=== PATIENT | female | born 1995 | race Caucasian/White ===

== ENCOUNTER 2019-04-11 11:25 | Emergency (ER) | payer BC ==
[2019-04-11 12:33] LABS: Amorphous Sediment,Urine Rare /hpf; Appearance,Urine Cloudy (Clear); Bacteria,Urine Rare /hpf; Bilirubin,Urine Negative (Negative); Blood,Urine Negative (Negative); Color,Urine Light Yellow; Glucose,Urine (UA) Negative (Negative); Ketones,Urine Negative (Negative); Leukocyte Esterase,Urine Large (Negative); Mucus,Urine Rare /hpf; Nitrite,Urine Negative (Negative); PH, Urine 6.5 (5.0-8.0); Protein,Urine Negative (Negative); RBC,Urine 2 /hpf (0-5); Specific Gravity,Urine 1.008 (1.001-1.035); Squamous Epithelial Cell,Urine 15 /hpf (0-4); Urobilinogen,Urine <2.0 mg/dL (<2.0); WBC,Urine 5 /hpf (0-5)
--- NOTE | 2019-04-11 12:55 | US ---
EXAMINATION TYPE: Transabdominal DATE OF EXAM: 04/11/2019 12:46 PM COMPARISON: NONE CLINICAL HISTORY: pain. EXAM PERFORMED: Transabdominal (TA) EXAM MEASUREMENTS: GESTATIONAL AGE / DATING Physician Established: (12 weeks/5 days) EDC: 10/19/2019 Dates by LMP: (12 weeks/5 days) EDC: 10/19/2019 Dates by First Scan: No previous this is first scan Dates by Current Scan for: (13 weeks/3 days) EDC: 10/14/2019 MATERNAL ANATOMY Uterus: 12.0 x 5.2 x 9.2 cm Right Ovary: 3.3 x 3.5 x 2.1 cm Left Ovary: 3.2 x 2.7 x 1.3 cm Post CDS / Adnexa: wnl Presence of free fluid: No Presence of corpus luteal cyst: Yes, right ovary measuring 1.7 cm Presence of subchorionic bleed: no GESTATION / SURVEY CRL: 7.1 cm (13 weeks/3 days Heart Rate: 146 bpm Rhythm: Normal IUP: Live IUP Date of LMP: Unsure Beta HcG (if available): Not available at this time IMPRESSION: Single live intrauterine with a sonographic age of 13 weeks and 3 days and scott mated date of delivery of 10/14/2019, overall concordant with menstrual age.
--- NOTE | 2019-04-11 13:11 | ED ---
Abdominal Pain HPI - General Chief Complaint: Abdominal Pain Stated Complaint: Cramping-12wks PG Time Seen by Provider: 04/11/19 12:10 Source: patient, RN notes reviewed Mode of arrival: ambulatory Limitations: no limitations - History of Present Illness Initial Comments: 24-year-old female presented for abdominal pain . Patient's had some ongoing pain last 4 days. 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 SHE IS A1. PATIENT STATES SHE'S PARTIALLY 12 WEEKS AND 5 DAYS. PATIENT STATES SHE HAS SOME LIGHT BROWN SPOTTING. SHE DENIES ANY FLANK PAIN. DENIES FEVERS, CHILLS, INCREASED NAUSEA VOMITING DIARRHEA CONSTIPATION. - Related Data Home Medications Medication Instructions Recorded Confirmed Acetaminophen Tab [Tylenol Tab] 1,000 mg PO Q6HR PRN 04/11/19 04/11/19 Nitrofurantoin Monohyd/M-Cryst 100 mg PO Q12HR 04/11/19 04/11/19 [Macrobid] Allergies Allergy/AdvReac Type Severity Reaction Status Date / Time Sulfa (Sulfonamide Allergy Rash/Hives Verified 04/11/19 12:27 Antibiotics) codeine AdvReac Rapid Verified 04/11/19 12:27 Heart Rate Review of Systems ROS Statement: Those systems with pertinent positive or pertinent negative responses have been documented in the HPI. ROS Other: All systems not noted in ROS Statement are negative. 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 Absent: tenderness, meningismus, lymphadenopathy Respiratory exam: Present: normal lung sounds bilaterally. Absent: respiratory distress, wheezes, rales, rhonchi, stridor Cardiovascular Exam: Present: regular rate, normal rhythm, normal heart sounds. Absent: systolic murmur, diastolic murmur, rubs, gallop, clicks GI/Abdominal exam: Present: soft, tenderness (Minimal suprapubic), normal bowel sounds. Absent: distended, guarding, rebound, rigid Back exam: Absent: CVA tenderness (R), CVA tenderness (L) Course Vital Signs 04/11/19 11:41 Temperature 98.5 F Pulse Rate 64 Respiratory 20 Rate Blood Pressure 113/71 O2 Sat by Pulse 99 Oximetry Medical Decision Making - Medical Decision Making Ultrasound was unremarkable shows single live IUP 13 weeks and 3 days. Patient does have some patient denied bacteriuria in she is currently on antibiotics or continue it. Patient advised to increase fluid intake. - Lab Data Lab Results 04/11/19 Range/Units 12:25 Urine Color Light Yellow Urine Appearance Cloudy H (Clear) Urine pH 6.5 (5.0-8.0) Ur Specific [place] 1.008 (1.001-1.035) Urine Protein Negative (Negative) Urine Glucose (UA) Negative (Negative) Urine Ketones Negative (Negative) Urine Blood Negative (Negative) Urine Nitrite Negative (Negative) Urine Bilirubin Negative (Negative) Urine Urobilinogen <2.0 (<2.0) mg/dL Ur Leukocyte Esterase Large H (Negative) Urine RBC 2 (0-5) /hpf Urine WBC 5 (0-5) /hpf Ur Squamous Epith Cells 15 H (0-4) /hpf Amorphous Sediment Rare H (None) /hpf Urine Bacteria Rare H (None) /hpf Urine Mucus Rare H (None) /hpf Disposition Clinical Impression: Abdominal pain during Disposition: HOME SELF-CARE Condition: Stable Instructions (If sedation given, give patient instructions): Abdominal Pain in (ED) Additional Instructions: Please return to the Emergency Department if symptoms worsen or any other concerns. Is patient prescribed a controlled substance at d/c from ED?: No Referrals: None,Stated [Primary Care Provider] - 1-2 days Time of Disposition: 13:10
[2019-04-11 13:26] VITALS: BP 109/67; PULSE 70; RESP 18; TEMP 98.7
== END 2019-04-11 13:25 | disposition home or self-care (01) ==
LOC: EC 11:25
DX: O99.89 Other specified diseases and conditions complicating pregnancy, childbirth and the puerperium (principal); R10.9 Unspecified abdominal pain; O26.851 Spotting complicating pregnancy, first trimester; Z87.891 Personal history of nicotine dependence; Z88.2 Allergy status to sulfonamides; Z88.5 Allergy status to narcotic agent; Z87.728 Personal history of other specified (corrected) congenital malformations of nervous system and sense organs; Z90.49 Acquired absence of other specified parts of digestive tract; Z3A.13 13 weeks gestation of pregnancy
CPT/HCPCS: 76801; 81001; 99284

== ENCOUNTER 2019-08-21 06:10 | Outpatient (CLI) | payer BC, OTHER ==
[2019-08-21 06:48] VITALS: BP 115/70; PULSE 81; RESP 16; TEMP 98.2
--- NOTE | 2019-09-07 07:53 | P.MSEPDOC ---
Presenting Problems - Arrival Data Date of Arrival on Unit: 08/21/19 Time of Arrival on Unit: 06:10 Mode of Transport: Ambulatory - Complaint OB-Reason for Admission/Chief Complaint: Other Comment: Chest pain/discomfort, SOB that is relieved with stretching out abdomen Medical History - Information : 1 Para: 0 Term: 0 : 0 Abortions: Spontaneous or Elective: 0 Number of Living Children: 0 - Gestational Age Gestational Age by MEHRDAD (wks/days): 31 Weeks and 4 Days Review of Systems - Review of Systems Constitutional: No problems Breast: No problems ENT: No problems Cardiovascular: Chest pain Respiratory: No problems Gastrointestinal: No problems Genitourinary: No problems Musculoskeletal: No problems Neurological: No problems Skin: No problems Comment: SOB Vital Signs - Temperature Temperature: 98.2 F Temperature Source: Oral - Pulse Right Pulse Rate: 81 Pulse Assessment Method: Automatic Cuff - Respirations Respiratory Rate: 16 Oxygen Delivery Method: Room Air O2 Sat by Pulse Oximetry: 98 - Blood Pressure Right Arm Blood Pressure: 115/70 Blood Pressure Mean: 85 Blood Pressure Source: Automatic Cuff Medical Screen Scoring (Pre) - Cervical Exam Dilation: 0 cm = 0 Effacement: Exam Deferred Membranes: Intact - Uterine Contractions Frequency: N/A - Maternal Vital Signs Maternal Temperature: N/A Maternal Blood Pressure: N/A Signs of Preeclampsia: N/A Maternal Respirations: N/A - Maternal Trauma Maternal Trauma: N/A - Assessment - Baby A Baseline FHR: 125 Heart Rate - NICHD Category: Category I (Normal) = 0 NST: Reactive Position: N/A Station: N/A - Total Score - Baby A Total Score - Baby A: 0 - Total Score - Baby B Total Score - Baby B: 0 - Total Score - Baby C Total Score - Baby C: 0 - Level of Risk - Baby A Level of Risk - Baby A: Low (0-5) - Level of Risk - Baby B Level of Risk - Baby B: Low (0-5) - Level of Risk - Baby C Level of Risk - Baby C: Low (0-5) Physician Notification (Pre) - Physician Notified Physician Notified Date: 08/21/19 Physician Notified Time: 06:30 New Order Received: Yes - Notification Comment Comment: Watch pt for 1hr and then send pt to ER for further evaluation Medical Screen Scoring (Post) - Cervical Exam Dilation: Exam Deferred Effacement: Exam Deferred Membranes: Intact - Uterine Contractions Frequency: N/A Duration: N/A Intensity: N/A - Maternal Vital Signs Maternal Temperature: N/A Maternal Blood Pressure: N/A Signs of Preeclampsia: N/A Maternal Respirations: N/A - Pain Assessment Pain Scale Used: Numeric (1 - 10) Pain Intensity: 0 - Maternal Trauma Maternal Trauma: N/A - Assessment - Baby A Heart Rate: 125 Heart Rate - NICHD Category: Category I (Normal) = 0 NST: Reactive Position: N/A Station: N/A - Total Score Total Score - Baby A: 0 Total Score - Baby B: 0 Total Score - Baby C: 0 - Post Treatment Level of Risk Post Treatment Level of Risk - Baby A: Low (0-5) Post Treatment Level of Risk - Baby B: Low (0-5) Post Treatment Level of Risk - Baby C: Low (0-5) Physician Notification (Post) - Physician Notified Physician Notified Date: 08/21/19 Physician Notified Time: 06:40 Physician/Practitioner Notified:: Arleen Spoke With: Arleen Disposition - Disposition OB Disposition: Transfer to other dept./facility, Discharge to home Transferred to:: ER Discharge Date: 08/21/19 Discharge Time: 07:20 I agree with the RN Medical Screening Exam: Yes Risk & Benefit of care provided described in d/c instruction: Yes Diagnosis: OTHER CHEST PAIN
== END 2019-08-21 07:20 | disposition home or self-care (01) ==
LOC: FBPOP 06:10
PROVIDERS: ATTEND Obstetrics & Gynecology
DX: O99.89 Other specified diseases and conditions complicating pregnancy, childbirth and the puerperium (principal); R07.89 Other chest pain; Z3A.31 31 weeks gestation of pregnancy
CPT/HCPCS: 59025; 99213

== ENCOUNTER 2019-08-21 07:22 | Emergency (ER) | payer BC, OTHER ==
[2019-08-21 07:29] VITALS: RESP 18
--- NOTE | 2019-08-21 07:45 | ED ---
Chest Pain HPI - General Chief Complaint: Chest Pain Stated Complaint: SOB/chest pain Time Seen by Provider: 08/21/19 07:30 Source: patient, RN notes reviewed, old records reviewed Mode of arrival: ambulatory Limitations: no limitations - History of Present Illness Initial Comments: This Patient is a [id number] female proximally 31 weeks who presents emergency department today with a few weeks of worsening chest discomfort and difficulty breathing with laying down as the baby is pressing on her abdomen and diaphragm. Patient states that this morning she woke up with some pelvic pain and decided to come to the emergency department for evaluation. She was evaluated on the mother-baby unit for an hour later how tones were obtained and were within normal limits. They determined the patient's pelvic pain is related to the round ligament stretching and babies position. Patient reports that she sent in here for further evaluation for the difficulty breathing. She reports that when she stretches her back and abdomen up that she has relief of her symptoms and feels that she is able to breathe better. She reports the baby seems to be riding high in the abdomen and pressing on her diaphragm. She denies any significant lower extremity swelling or hemoptysis. She reports pain is mainly substernal and under diaphragm. - Related Data Home Medications Medication Instructions Recorded Confirmed Pnv,Calcium 72/Iron/Folic Acid 1 tab PO DAILY 08/21/19 08/21/19 [ Plus Tablet] Allergies Allergy/AdvReac Type Severity Reaction Status Date / Time Sulfa (Sulfonamide Allergy Rash/Hives Verified 08/21/19 07:29 Antibiotics) codeine AdvReac Rapid Verified 08/21/19 07:29 Heart Rate Review of Systems ROS Statement: Those systems with pertinent positive or pertinent negative responses have been documented in the HPI. ROS Other: All systems not noted in ROS Statement are negative. EKG Findings - EKG Comments: EKG Findings:: EKG performed shows normal sinus rhythm abnormal EKG. Ventricular rate of 85 bpm. [place] interval is 124 ms. QS duration is 80 ms. QT QTc is 360/452 ms. No evidence of ST elevation. 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 Limitations: no limitations General appearance: alert, in no apparent distress Head exam: Present: atraumatic, normocephalic, normal inspection Eye exam: Present: normal appearance ENT exam: Present: normal exam, mucous membranes moist Neck exam: Present: normal inspection. Absent: tenderness, meningismus, lymphadenopathy Respiratory exam: Present: normal lung sounds bilaterally, other (reproducible chest pain with palpation over sternum). Absent: respiratory distress, wheezes, rales, rhonchi, stridor Cardiovascular Exam: Present: regular rate, normal rhythm, normal heart sounds. Absent: systolic murmur, diastolic murmur, rubs, gallop, clicks GI/Abdominal exam: Present: soft, distended (31 weeks ), normal bowel sounds. Absent: tenderness, guarding, rebound, rigid Extremities exam: Present: normal inspection, other (no calf tenderness or swelling) Back exam: Present: normal inspection Neurological exam: Present: alert, oriented X3, CN II-XII intact Course Vital Signs 08/21/19 08/21/19 07:23 07:39 Temperature 98.1 F Pulse Rate 92 Respiratory 18 18 Rate Blood Pressure 102/69 O2 Sat by Pulse 98 99 Oximetry Chest Pain MDM - MDM This is a 24-year-old female who presents emergency room today for evaluation for concerns for difficulty breathing and diaphragm and substernal chest discomfort with laying in the EC measuring 31 weeks on her diaphragm. She's been having symptoms for the past few weeks. She was seen in the mother- baby unit for acute pelvic pain was monitored for an hour before ER arrival. Heart tones are stable. Patient's pain is reproducible a pressure on the sternum and upper abdomen. Her vital signs are stable pulse ox is 99 200% on room air. She denies hemoptysis or lower extremity swelling. I discussed the risk factors of being for pulmonary embolism. She states that she's been having this pain for a month and is just become progressively worse as baby is growing. A low clinical suspicion for PE again if the pain is reproducible and vital signs are stable. EKG was performed and showed normal sinus rhythm at 95 bpm. Patient was offered further evaluation including chest x-ray and for testing for any risk for PE. She states that she would prefer to avoid radiation and further testing at this time. Patient case was discussed with Dr. Knight. I discussed with the Patient to follow-up with her OB. Disposition Clinical Impression: Shortness of breath due to in third trimester Disposition: HOME SELF-CARE Condition: Good Instructions (If sedation given, give patient instructions): Costochondritis (ED), (ED) Additional Instructions: Patient is to rest, follow-up with [facility]. Patient is to return if there is any worsening cough or any worsening signs or symptoms, or pain seems to be not reproducible with palpation over the sternum and abdomen. Is patient prescribed a controlled substance at d/c from ED?: No Referrals: None,Stated [Primary Care Provider] - 1-2 days Time of Disposition: 07:53
[2019-08-21 08:08] VITALS: BP 99/62; PULSE 76; TEMP 98.5
== END 2019-08-21 08:07 | disposition home or self-care (01) ==
LOC: EC 07:22
DX: O26.893 Other specified pregnancy related conditions, third trimester (principal); R06.02 Shortness of breath; Z3A.31 31 weeks gestation of pregnancy; Z88.2 Allergy status to sulfonamides; Z88.5 Allergy status to narcotic agent
CPT/HCPCS: 59025; 93005; 99213; 99285

== ENCOUNTER 2019-10-05 08:05 | Outpatient (CLI) | payer BC, OTHER ==
[2019-10-05 09:33] VITALS: BP 115/74; PULSE 81; RESP 16; TEMP 97.3
--- NOTE | 2019-10-05 09:38 | P.MSEPDOC ---
Presenting Problems - Arrival Data Date of Arrival on Unit: 10/05/19 Time of Arrival on Unit: 08:05 Mode of Transport: Ambulatory - Complaint OB-Reason for Admission/Chief Complaint: Rule Out SROM Comment: 0530 clear fluid Medical History - Information : 1 Para: 0 Term: 0 : 0 Abortions: Spontaneous or Elective: 0 Number of Living Children: 0 - Gestational Age Gestational Age by MEHRDAD (wks/days): 38 Weeks and 0 Days Review of Systems - Review of Systems Constitutional: No problems Breast: No problems ENT: No problems Cardiovascular: No problems Respiratory: No problems Gastrointestinal: No problems Genitourinary: No problems Musculoskeletal: No problems Neurological: No problems Skin: No problems Vital Signs - Temperature Temperature: 97.3 F Temperature Source: Temporal Artery Scan - Pulse Right Brachial Pulse Rate: 81 Pulse Assessment Method: Automatic Cuff - Respirations Respiratory Rate: 16 Oxygen Delivery Method: Room Air - Blood Pressure Right Arm Sitting Blood Pressure: 115/74 Blood Pressure Mean: 87 Blood Pressure Source: Automatic Cuff Medical Screen Scoring (Pre) - Cervical Exam Dilation: 1-3 cm = 1 Membranes: Intact - Uterine Contractions Frequency: > 5 minutes apart = 1 Duration: N/A Intensity: N/A - Maternal Vital Signs Maternal Temperature: N/A Maternal Blood Pressure: N/A Signs of Preeclampsia: N/A Maternal Respirations: N/A - Maternal Trauma Maternal Trauma: N/A - Assessment - Baby A Baseline FHR: 115 Heart Rate - NICHD Category: Category I (Normal) = 0 NST: Reactive Position: N/A Station: N/A - Total Score - Baby A Total Score - Baby A: 2 - Total Score - Baby B Total Score - Baby B: 2 - Total Score - Baby C Total Score - Baby C: 2 - Level of Risk - Baby A Level of Risk - Baby A: Low (0-5) - Level of Risk - Baby B Level of Risk - Baby B: Low (0-5) - Level of Risk - Baby C Level of Risk - Baby C: Low (0-5) Physician Notification (Pre) - Physician Notified Physician Notified Date: 10/05/19 Physician Notified Time: 09:11 New Order Received: Yes (discharge with instruction) - Notification Comment Comment: possible rom at 0530, amnisure negative, not van, appt scheduled Wednesday Disposition - Disposition OB Disposition: Triage, Discharge to home Discharge Date: 10/05/19 Discharge Time: 09:12 I agree with the RN Medical Screening Exam: Yes Risk & Benefit of care provided described in d/c instruction: Yes Diagnosis: RELATED CONDITIONS, UNSPECIFIED, THIRD TRIMESTER (?SROM)
== END 2019-10-05 09:12 | disposition home or self-care (01) ==
LOC: FBPOP 08:05
PROVIDERS: ATTEND Obstetrics & Gynecology
DX: O26.93 Pregnancy related conditions, unspecified, third trimester (principal); Z3A.00 Weeks of gestation of pregnancy not specified
CPT/HCPCS: 59025; 84112; 99213

== ENCOUNTER 2019-10-09 08:31 | Outpatient (CLI) | payer BC, OTHER ==
[2019-10-09 10:09] VITALS: BP 100/61; PULSE 69; RESP 16; TEMP 96.7
--- NOTE | 2019-10-09 10:11 | US ---
EXAMINATION TYPE: US OB limited DATE OF EXAM: 10/09/2019 COMPARISON: 04/11/2019 CLINICAL HISTORY: 24-year-old female SARI only EXAM PERFORMED: Transabdominal (TA) FINDINGS: GESTATIONAL AGE / DATING Physician Established: (38 weeks/4 days) EDC: 10/19/2019 No growth performed on today?s study per ordering physician SURVEY SARI: 9.9 cm, low Normal Ultrasound evidence of premature rupture of membranes? No HEART RATE: 129 bpm RHYTHM: Normal IMPRESSION: SARI low normal at 9.9.
--- NOTE | 2019-10-09 18:28 | P.MSEPDOC ---
Presenting Problems - Arrival Data Date of Arrival on Unit: 10/09/19 Time of Arrival on Unit: 08:31 Mode of Transport: Ambulatory - Complaint OB-Reason for Admission/Chief Complaint: Rule Out SROM Comment: leaking since 10/04, two large gushes this am Medical History - Information : 1 Para: 0 Term: 0 : 0 Abortions: Spontaneous or Elective: 0 Number of Living Children: 0 - Gestational Age Gestational Age by MEHRDAD (wks/days): 38 Weeks and 4 Days Review of Systems - Review of Systems Constitutional: No problems Breast: No problems ENT: No problems Cardiovascular: No problems Respiratory: No problems Gastrointestinal: No problems Genitourinary: No problems Musculoskeletal: No problems Neurological: No problems Skin: No problems Vital Signs - Temperature Temperature: 96.7 F Temperature Source: Temporal Artery Scan - Pulse Right Pulse Rate: 69 Pulse Assessment Method: Automatic Cuff - Respirations Respiratory Rate: 16 Oxygen Delivery Method: Room Air O2 Sat by Pulse Oximetry: 100 - Blood Pressure Right Arm Blood Pressure: 100/61 Blood Pressure Mean: 74 Blood Pressure Source: Automatic Cuff Medical Screen Scoring (Pre) - Cervical Exam Dilation: 1-3 cm = 1 Membranes: Intact - Uterine Contractions Frequency: > or = 36 weeks =2 Duration: > 40 seconds = 2 Intensity: N/A - Maternal Vital Signs Maternal Temperature: N/A Maternal Blood Pressure: N/A Signs of Preeclampsia: N/A Maternal Respirations: N/A - Maternal Trauma Maternal Trauma: N/A - Assessment - Baby A Baseline FHR: 120 Heart Rate - NICHD Category: Category I (Normal) = 0 NST: Reactive Position: N/A Station: N/A - Total Score - Baby A Total Score - Baby A: 5 - Total Score - Baby B Total Score - Baby B: 5 - Total Score - Baby C Total Score - Baby C: 5 - Level of Risk - Baby A Level of Risk - Baby A: Low (0-5) - Level of Risk - Baby B Level of Risk - Baby B: Low (0-5) - Level of Risk - Baby C Level of Risk - Baby C: Low (0-5) Physician Notification (Pre) - Physician Notified Physician Notified Date: 10/09/19 Physician Notified Time: 09:55 New Order Received: Yes - Notification Comment Comment: discharge to home with instruction to keep appt today at 1430 in office Disposition - Disposition OB Disposition: Triage, Discharge to home Discharge Date: 10/09/19 Discharge Time: 09:57 I agree with the RN Medical Screening Exam: Yes Risk & Benefit of care provided described in d/c instruction: Yes Diagnosis: FALSE LABOR AT OR AFTER 37 COMPLETED WEEKS OF GESTATION (Patient presented with complaints of vaginal leakage. Patient was here apparently couple days ago with similar complaints and amnio sure was negative at that time. Repeat amnio sure is still negative. I did order a bedside ultrasound which showed a normal SARI of 9.9. I did do a repeat examination myself in the office with a speculum exam and there is no evidence of amniotic fluid only copious vaginal discharge most likely accounting for this patient's symptomatology. heart tones are reactive/category 1. Patient was instructed to return if she had any concerns in regard to leaking of fluid, regular contractions, vaginal bleeding. At this time there is no evidence of rupture of membranes. Patient has requested induction and this was scheduled for Wednesday after 39 weeks.)
== END 2019-10-09 09:57 | disposition home or self-care (01) ==
LOC: FBPOP 08:31
PROVIDERS: ATTEND Obstetrics & Gynecology
DX: O47.1 False labor at or after 37 completed weeks of gestation (principal); Z3A.38 38 weeks gestation of pregnancy
CPT/HCPCS: 59025; 76815; 84112; 99213

== ENCOUNTER 2019-10-10 06:00 | Inpatient (IN) | payer BC, OTHER ==
--- NOTE | 2019-10-12 14:40 | P.HPOB ---
History of Present Illness H&P Date: 10/12/19 Chief Complaint: Requested induction of labor. This is a pleasant 24 yr EDC 10/19/2019 estimated gestational age 39 1/7 weeks who presents for requested induction of labor due to maternal discomfort. 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 has otherwise been uncomplicated. Review of Systems Genitourinary: Reports Menstruation: Reports amenorrhea Past Medical History Additional Past Medical History / Comment(s): marino malformation (type 1) History of Any Multi-Drug Resistant Organisms: None Reported Past Surgical History: Cholecystectomy Additional Past Surgical History / Comment(s): brain surgery - marino decompression surgery Past Anesthesia/Blood Transfusion Reactions: No Reported Reaction Past Psychological History: No Psychological Hx Reported Smoking Status: Never smoker Past Alcohol Use History: None Reported Past Drug Use History: None Reported Medications and Allergies Home Medications Medication Instructions Recorded Confirmed Type Acetaminophen Tab [Tylenol Tab] 1,000 mg PO Q6HR PRN 08/21/19 10/11/19 History Pnv,Calcium 72/Iron/Folic Acid 1 tab PO DAILY 08/21/19 10/11/19 History [ Plus Tablet] Allergies Allergy/AdvReac Type Severity Reaction Status Date / Time Sulfa (Sulfonamide Allergy Rash/Hives Verified 10/11/19 04:56 Antibiotics) codeine AdvReac Rapid Verified 10/11/19 04:56 Heart Rate Exam - OBG Physical Exam Abdomen: bowel sounds normal, no diffuse tenderness, no bruit present, no guarding noted, no hepatomegaly, no splenomegaly, no mass Vulva: both: normal Vagina: normal moisture, no discharge Cervix: no lesion (Cervix 1/th in the office), no discharge Uterus: enlarged (Fundal height is 38cm.) Results labs: A positive, Rubella Immune, RPR-HepB neg, GBS negative, Glucola 136 with normal 3hr GTT. Ultrasound 09/18 shows 6#7oz (76%), normal Assessment and Plan Assessment: This patient is a pleasant 24 yr female 39 1/7 weeks gestation requesting induction of labor secondary to maternal discomfort. Plan is induction of labor and anticipate . (1) 39 weeks gestation of Status: Acute Code(s): Z3A.39 - 39 WEEKS GESTATION OF SNOMED Code(s): 06000086 (2) Elective induction of labor planned Status: Acute Code(s): AZN5084 - SNOMED Code(s): 584583887
[2019-10-13] MEDS ORDERED: OXYTOCIN 30 UNITS/500 ML NS 30 UNIT in SALINE 1 500ML.BAG IV SCH (06:12)
[2019-10-13] MEDS ORDERED: LACTATED RINGERS 1,000 ML IV SCH (06:12)
[2019-10-13] MEDS ORDERED: OXYTOCIN 10 UNIT/ML 1 ML VIAL IM PRN (06:12)
[2019-10-13] MEDS ORDERED: LIDOCAINE 0.5% (PF) 5 MG/ML (50 ML SDV) SQ PRN (06:12)
[2019-10-13] MEDS ORDERED: METHYLERGONOVINE 0.2 MG/ML 1 ML AMP IM PRN (06:12)
[2019-10-13] MEDS ORDERED: CARBOPROST TROMETHAMINE 250 MCG/ML 1 ML AMP IM PRN (06:12)
[2019-10-13] MEDS ORDERED: TERBUTALINE 1 MG/ML VIAL SQ PRN (06:12)
[2019-10-13 06:50] LABS: Basophils % (A) 1 %; Eosinophils # (A) 0.2 k/uL (0-0.7); Eosinophils % (A) 2 %; HCT 31.7 % (34.0-46.0); Hypochromasia Moderate; Lymphocytes # (A) 2.3 k/uL (1.0-4.8); Lymphocytes % (A) 25 %; MCH 25.3 pg (25.0-35.0); MCHC 31.6 g/dL (31.0-37.0); MCV 79.9 fL (80.0-100.0); Mean Platelet Volume 8.6; Monocytes # (A) 0.4 k/uL (0-1.0); Monocytes % (A) 4 %; Neutrophils # (A) 6.1 k/uL (1.3-7.7); Neutrophils % (A) 66 %; Platelet Count 242 k/uL (150-450); Poikilocytosis Slight; RBC 3.96 m/uL (3.80-5.40); RDW 14.9 % (11.5-15.5); WBC 9.2 k/uL (3.8-10.6)
[2019-10-13] MEDS ORDERED: LACTATED RINGERS 1,000 ML IV ONE (13:00)
[2019-10-13] MEDS ORDERED: CITRIC ACID-SODIUM CITRATE 15 ML CUP PO ONE (13:00)
[2019-10-13] MEDS ORDERED: HYDROmorphone PCA 10 MG/50 ML BAG IV PRN (14:15)
[2019-10-13] MEDS ORDERED: diphenhydrAMINE 50 MG/ML 1 ML VIAL IVP PRN (14:15)
[2019-10-13] MEDS ORDERED: NALOXONE 0.4 MG/ML 1 ML VIAL IV PRN ×2 (14:15)
[2019-10-13] MEDS ORDERED: LANOLIN CREAM 5 GM TUBE TOPICAL PRN (14:15)
[2019-10-13] MEDS ORDERED: METOCLOPRAMIDE 5 MG/ML 2 ML VIAL IVP PRN (14:15)
[2019-10-13] MEDS ORDERED: diphenhydrAMINE 25 MG CAP PO PRN (14:15)
[2019-10-13] MEDS ORDERED: OXYTOCIN 20 UNITS/1000 ML NS 1,000 ML IV SCH (14:15)
[2019-10-13] MEDS ORDERED: ONDANSETRON 4 MG/2 ML VIAL IVP PRN ×2 (14:15→17:56)
[2019-10-13] MEDS ORDERED: ACETAMINOPHEN TAB 325 MG TAB PO PRN (14:15)
[2019-10-13] MEDS ORDERED: SIMETHICONE 80 MG CHEWABLE PO PRN (14:15)
[2019-10-13] MEDS ORDERED: ZOLPIDEM 5 MG TAB PO PRN (14:15)
[2019-10-13] MEDS ORDERED: diphenhydrAMINE 50 MG CAP PO PRN (14:15)
--- NOTE | 2019-10-13 17:42 | P.OP ---
Date of Procedure: 10/13/19 Preoperative Diagnosis: #1:39 1/7 weeks . #2: Requested induction of labor. #3: Known Chiari malformation with inability to place epidural Postoperative Diagnosis: Same Procedure(s) Performed: Primary low transverse section Anesthesia: TIN Surgeon: Juan Bacon Cutter Operator #1: Teri Garcia Estimated Blood Loss (ml): 800 Pathology: none sent Condition: stable Disposition: floor Indications for Procedure: Please see dictated H&P for intimate details of this patient's admission. In brief summary this is a pleasant 24-year-old 2 para 0 female estimated gestational age 39 and one sevenths weeks who presents to labor and delivery for induction of labor due to maternal discomfort. Patient has known Chiari type I malformation status post repair. I did receive the operative note from her surgery at [facility]. Patient requested that I have an anesthetic consultation this morning and if they were unable to place an epidural she was requesting section for delivery because she did not think she could tolerate labor due to the pain. Patient was seen by maternal medicine and they cleared her as far as a vaginal delivery except for obstetrical indications. Patient was seen by anesthesia and they felt it was safe and appropriate to try an epidural. Despite multiple attempts, they were unable to place the epidural and patient is now requesting section for delivery. I did discuss the surgery with the patient and her family including the risks of infection, bleeding, possible injury bowel, bladder, vessels, and/or other organs. All the patient's questions are answered and a written consent is obtained. Operative Findings: This was a vigorous viable female Apgars 8 and 9 delivery time is 1336 hrs. grossly appeared normal. Uterus tubes and ovaries appear normal for term gestation as well Description of Procedure: This patient has a Jasso catheter placed to straight drain. She is subsequently taken to the operating room where she is laid in the supine position. heart tones are category 1. She has an abdominal prep and drape. With the entire surgical team in place and a timeout done the patient undergoes rapid sequence general endotracheal anesthesia. With adequate level of anesthesia scalpels taken Pfannenstiel skin incision is then made. A second scalpel is taken down the fascia the fascia scored with a knife. Fascial incision extended bilaterally using the Alonzo scissors. Fascia is then dissected off the rectus muscles. Rectus muscles are the peritoneum is identified and entered sharply. Peritoneal incision extended superior and inferior without difficulty. Bladder blade is then placed. Bladder peritoneum was taken sharply off the lower uterine segment. Scalpels then taken low transverse uterine incision is made. Using a hemostat I enter the uterine cavity bluntly and there is loss of clear fluid. Infant's head is then easily guided through the incision with fundal pressure. Mouth and nares are bulb suctioned. There is no evidence of a nuchal cord. We then have rest of this infant's body delivered without incident. The vigorous viable female Apgars are 8 and 9 delivery time is 1336 hrs. After delivery of the infant the umbilical cord is doubly clamped and cut it appears to be trivascular. The placenta is then manually removed intact. Uterus is boggy at this time most likely secondary to the general anesthetic and therefore uterine massage is done patient is given 10 units of Pitocin IV push. Uterus responds well and is quite firm. Uterine incision is then closed using 0 Vicryl running locked fashion 2 layers excellent hemostasis is noted. The bladder peritoneum was then closed using a 3-0 Vicryl. Excess fluid is re moved from the abdomen and pelvis. Uterus tubes and ovaries appear normal for term gestation. Uterus is placed back into the abdomen. The parietal peritoneum was then closed in 0 Vicryl running fashion. Rectus muscles reapproximated Vicryl interrupted fashion. Fascial incision then closed using 0 PDS. Fascial incision is intact and hemostatic. Subcutaneous tissues and closed using a 3-0 Vicryl. Incision is then closed using shari. All counts are correct 3. There are no complications. Infant is taken to the birthing room in satisfactory condition and mother is awakened from anesthesia and taken birthing suite in satisfactory condition as well.
[2019-10-13] MEDS ORDERED: ONDANSETRON 4 MG in SODIUM CHLORIDE 0.9% 50 ML IVPB PRN (17:51)
[2019-10-13] MEDS: LACTATED RINGERS 1,000 ML IV SCH ×2 (20:53→23:04)
[2019-10-13] MEDS: SENNOSIDES-DOCUSATE SODIUM 1 EACH TAB PO SCH (23:03)
[2019-10-14] MEDS: LACTATED RINGERS 1,000 ML IV SCH ×3 (05:59→20:09)
[2019-10-14 06:14] LABS: Basophils % (A) 0 %; Eosinophils # (A) 0.1 k/uL (0-0.7); Eosinophils % (A) 0 %; Hypochromasia Marked; Lymphocytes # (A) 2.1 k/uL (1.0-4.8); Lymphocytes % (A) 13 %; MCH 24.8 pg (25.0-35.0); Mean Platelet Volume 8.6; Monocytes # (A) 0.8 k/uL (0-1.0); Monocytes % (A) 5 %; Neutrophils # (A) 13.4 k/uL (1.3-7.7); Neutrophils % (A) 81 %; Platelet Count 203 k/uL (150-450); Poikilocytosis Slight; RBC 3.25 m/uL (3.80-5.40); WBC 16.4 k/uL (3.8-10.6)
[2019-10-14 06:32] LABS: HGB 8.1 gm/dL (11.4-16.0)
[2019-10-14] MEDS: IBUPROFEN 600 MG TAB PO PRN ×3 (06:43→18:53)
[2019-10-14] MEDS: IRON AG/C/B12/CA/SUC.ACID/STOM 1 EACH TAB PO SCH (08:18)
[2019-10-14] MEDS: HYDROcodone/APAP 5-325MG 1 EACH TAB PO PRN ×3 (08:20→20:09)
[2019-10-14] MEDS: SENNOSIDES-DOCUSATE SODIUM 1 EACH TAB PO SCH ×2 (09:24→20:10)
[2019-10-15] MEDS: HYDROcodone/APAP 5-325MG 1 EACH TAB PO PRN ×5 (00:39→21:04)
[2019-10-15] MEDS: LACTATED RINGERS 1,000 ML IV SCH (04:56)
--- NOTE | 2019-10-15 06:48 | P.PN ---
Progress Note - Text Progress Note Date: 10/14/19 Please note this is a progress note from yesterday. Patient's vital signs are stable and she is afebrile. Her incision was intact and dry patient CBC showed her hemoglobin down to 8 and therefore she was started on some chromogen. Plan was to discontinue her PANELBEATER, encourage ambulation, discontinue her catheter, and continue routine postoperative care
--- NOTE | 2019-10-15 06:49 | P.PN ---
Progress Note - Text Progress Note Date: 10/15/19 Postoperative day #2. Patient continues to do well. Vital signs are stable and she is afebrile. Uterus is firm nontender her incision is intact and dry. Patient is tolerating regular diet. She is ambulating and urinating. Plan today is to continue postoperative care most likely discharge home tomorrow.
[2019-10-15] MEDS: SENNOSIDES-DOCUSATE SODIUM 1 EACH TAB PO SCH (08:32)
[2019-10-15] MEDS: IBUPROFEN 600 MG TAB PO PRN ×3 (08:33→20:17)
[2019-10-15] MEDS: IRON AG/C/B12/CA/SUC.ACID/STOM 1 EACH TAB PO SCH (08:36)
[2019-10-16] MEDS: LACTATED RINGERS 1,000 ML IV SCH (00:27)
[2019-10-16] MEDS: SENNOSIDES-DOCUSATE SODIUM 1 EACH TAB PO SCH ×2 (00:28→08:09)
[2019-10-16] MEDS: HYDROcodone/APAP 5-325MG 1 EACH TAB PO PRN ×2 (04:43→11:37)
--- NOTE | 2019-10-16 06:40 | P.PN ---
Progress Note - Text Progress Note Date: 10/16/19 Postoperative day #3. Patient is resting without complaints and wishes to go home. Vital signs are stable she is afebrile. Uterus is firm nontender and her incision is intact and dry. My impression this is a normal postoperative course. Plan is to continue routine postoperative care and discharge home later today
--- NOTE | 2019-10-16 06:48 | P.DS ---
Providers Date of admission: 10/13/19 06:00 Expected date of discharge: 10/16/19 Attending physician: Juan Bacon Primary care physician: Stated None - Discharge Diagnosis(es) (1) 39 weeks gestation of Current Visit: No Status: Acute (2) Elective induction of labor planned Current Visit: No Status: Acute Hospital Course: Please see dictated H&P for intimate details of this patient's admission. Brief summary this is a pleasant 24-year-old female admitted to labor and delivery for requested induction of labor. Due to previous surgery for Chiari. syndrome patient had a attempted epidural placement without success and subsequently underwent a primary low transverse section under general anesthetic for viable female . Please see dictated delivery note. She was anemic prior to delivery her hemoglobin didn't drop appropriately and she was placed on Ch romagen . She very well and 3 spelled stable for discharge home follow up with me in approximately 1 week Procedures: Induction of labor and primary low transverse section Plan - Discharge Summary New Discharge Prescriptions: New Ibuprofen [Motrin] 600 mg PO Q6HR PRN #40 tab PRN Reason: Mild Pain Or Fever >= 100.5 Iron Ag/C/B12/Ca/Suc.acid/Stom [Multigen] 1 each PO DAILY #30 tab HYDROcodone/APAP 5-325MG [[place] 5-325] 1 each PO Q4HR PRN #18 tab PRN Reason: Pain No Action Pnv,Calcium 72/Iron/Folic Acid [ Plus Tablet] 1 tab PO DAILY Acetaminophen Tab [Tylenol Tab] 1,000 mg PO Q6HR PRN PRN Reason: Pain Or Fever > 100.5 Discharge Medication List Acetaminophen Tab [Tylenol Tab] 1,000 mg PO Q6HR PRN 08/21/19 [History] Pnv,Calcium 72/Iron/Folic Acid [ Plus Tablet] 1 tab PO DAILY 08/21/19 [ History] HYDROcodone/APAP 5-325MG [[place] 5-325] 1 each PO Q4HR PRN #18 tab 10/16/19 [Rx] Ibuprofen [Motrin] 600 mg PO Q6HR PRN #40 tab 10/16/19 [Rx] Iron Ag/C/B12/Ca/Suc.acid/Stom [Multigen] 1 each PO DAILY #30 tab 10/16/19 [Rx] Follow up Appointment(s)/Referral(s): Juan Bacon MD [STAFF PHYSICIAN] - 1 Week (Please see me also on November 23 at 3:00 for a visit.) Patient Instructions/Handouts: (DC), Iron Deficiency Anemia (DC), Iron Rich Diet (DC) Activity/Diet/Wound Care/Special Instructions: No heavy lifting or strenuous activity for 6 weeks. No intercourse or anything per vagina for 6 weeks. Please call if any fever, chills, excessive vaginal bleeding, and/or abdominal pain. Discharge Disposition: HOME SELF-CARE
[2019-10-16] MEDS: IRON AG/C/B12/CA/SUC.ACID/STOM 1 EACH TAB PO SCH (08:08)
[2019-10-16] MEDS: IBUPROFEN 600 MG TAB PO PRN (09:41)
[2019-10-16 12:24] VITALS: BP 103/70; PULSE 79; RESP 18; TEMP 98.7
== END 2019-10-16 11:58 | disposition home or self-care (01) | DRG 786 ==
LOC: 4FBP 10-13 06:00
PROVIDERS: ADMIT Obstetrics & Gynecology; ATTEND Obstetrics & Gynecology
PROC: 3E033VJ Introduction of Other Hormone into Peripheral Vein, Percutaneous Approach (ICD-10-PCS; principal; 2019-10-13 13:30)
PROC: 10D00Z1 Extraction of Products of Conception, Low, Open Approach (ICD-10-PCS; principal; 2019-10-13 13:30)
PROC: 10907ZC Drainage of Amniotic Fluid, Therapeutic from Products of Conception, Via Natural or Artificial Opening (ICD-10-PCS; principal; 2019-10-13 13:30)
DX: O99.354 Diseases of the nervous system complicating childbirth (principal); G93.5 Compression of brain; Q07.00 Arnold-Chiari syndrome without spina bifida or hydrocephalus; O99.02 Anemia complicating childbirth; D64.9 Anemia, unspecified; Z3A.39 39 weeks gestation of pregnancy; Z37.0 Single live birth; Z79.899 Other long term (current) drug therapy; Z98.890 Other specified postprocedural states; Z90.49 Acquired absence of other specified parts of digestive tract; Z87.19 Personal history of other diseases of the digestive system; Z88.5 Allergy status to narcotic agent; Z88.2 Allergy status to sulfonamides
CPT/HCPCS: 85025; 86850; 86900; 86901

== ENCOUNTER 2019-10-11 04:47 | Outpatient (CLI) | payer BC, OTHER ==
[2019-10-11 05:47] VITALS: BP 117/65; PULSE 70; RESP 16; TEMP 98.4
--- NOTE | 2019-10-11 16:57 | P.MSEPDOC ---
Presenting Problems - Arrival Data Date of Arrival on Unit: 10/11/19 Time of Arrival on Unit: 04:47 Mode of Transport: Ambulatory - Complaint OB-Reason for Admission/Chief Complaint: Possible Onset of Labor Medical History - Information : 2 Para: 0 Term: 0 : 0 Abortions: Spontaneous or Elective: 1 Number of Living Children: 0 - Gestational Age Gestational Age by MEHRDAD (wks/days): 38 Weeks and 6 Days Review of Systems - Review of Systems Constitutional: No problems Breast: No problems ENT: No problems Cardiovascular: No problems Respiratory: No problems Gastrointestinal: No problems Genitourinary: No problems Musculoskeletal: No problems Neurological: No problems Skin: No problems Vital Signs - Temperature Temperature: 98.4 F Temperature Source: Oral - Pulse Right Pulse Rate: 70 Pulse Assessment Method: Automatic Cuff - Respirations Respiratory Rate: 16 Oxygen Delivery Method: Room Air O2 Sat by Pulse Oximetry: 100 - Blood Pressure Right Arm Blood Pressure: 117/65 Blood Pressure Mean: 82 Blood Pressure Source: Automatic Cuff Medical Screen Scoring (Pre) - Cervical Exam Dilation: 1-3 cm = 1 Membranes: Intact - Uterine Contractions Frequency: > 5 minutes apart = 1 Duration: N/A Intensity: N/A - Maternal Vital Signs Maternal Temperature: N/A Maternal Blood Pressure: N/A Signs of Preeclampsia: N/A Maternal Respirations: N/A - Maternal Trauma Maternal Trauma: N/A - Assessment - Baby A Baseline FHR: 120 Heart Rate - NICHD Category: Category I (Normal) = 0 NST: Reactive Position: N/A Station: N/A - Total Score - Baby A Total Score - Baby A: 2 - Total Score - Baby B Total Score - Baby B: 2 - Total Score - Baby C Total Score - Baby C: 2 - Level of Risk - Baby A Level of Risk - Baby A: Low (0-5) - Level of Risk - Baby B Level of Risk - Baby B: Low (0-5) - Level of Risk - Baby C Level of Risk - Baby C: Low (0-5) Physician Notification (Pre) - Physician Notified Physician Notified Date: 10/11/19 Physician Notified Time: 05:30 New Order Received: Yes (discharge to keep induction appt on Wednesday) Disposition - Disposition OB Disposition: Discharge to home Discharge Date: 10/11/19 Discharge Time: 05:43 I agree with the RN Medical Screening Exam: Yes Risk & Benefit of care provided described in d/c instruction: Yes Diagnosis: FALSE LABOR AT OR AFTER 37 COMPLETED WEEKS OF GESTATION
== END 2019-10-11 05:45 | disposition home or self-care (01) ==
LOC: FBPOP 04:47
PROVIDERS: ATTEND Obstetrics & Gynecology
DX: O47.1 False labor at or after 37 completed weeks of gestation (principal); Z3A.38 38 weeks gestation of pregnancy
CPT/HCPCS: 59025; 99213